=== PATIENT | female | born 2000 | race Caucasian/White ===

== ENCOUNTER 2021-05-27 15:58 | Emergency (ER) | payer MEDICAID, OTHER ==
[~2021-05-27] VITALS: Ht 162.6 cm; Wt 68.0 kg
[2021-05-27] MEDS ORDERED: IOHEXOL 300 MG/ML 100ML BOTTLE IJ ONE (16:35)
[2021-05-27] MEDS ORDERED: LIDOCAINE 1% HCL (LOCAL ANESTH.) INJ 20ML MDV IJ ONE (17:30)
[2021-05-27] MEDS ORDERED: LIDOCAINE 1%HCL (LOCAL ANESTH) 10 ML MDV ONE (17:43)
[2021-05-27] MEDS ORDERED: cefTRIAXone 1GM/50ML D5W 50 ML IV ONE (18:15)
[2021-05-27] MEDS ORDERED: MORPHINE SULFATE 4 MG/ML SYR/VIAL IV ONE (18:15)
[2021-05-27] MEDS ORDERED: ONDANSETRON HCL 4 MG/2 ML VIAL IV ONE (18:15)
[2021-05-27] MEDS ORDERED: PERCOT PO ×2 (19:35→20:28)
[2021-05-27 19:41] VITALS: BP 124/79
[2021-05-27] MEDS ORDERED: TETANUS-DIPTH-ACEL PERTUSSIS 0.5ML SYR Tdap IM ONE (19:45)
== END 2021-05-27 20:11 | disposition home or self-care (01) ==
LOC: ER 15:58
DX: S01.01XA Laceration without foreign body of scalp, initial encounter (principal); Z88.6 Allergy status to analgesic agent; V86.59XA Driver of other special all-terrain or other off-road motor vehicle injured in nontraffic accident, initial encounter; Y93.89 Activity, other specified; Y92.89 Other specified places as the place of occurrence of the external cause; Y99.8 Other external cause status
CPT/HCPCS: 12004; 70450; 70486; 71260; 72125; 73560; 73600; 74177; 90471; 90715; 96365; 96366; 96375; 99285; J0696; J2001; J2270; J2405; Q9967

== ENCOUNTER 2021-06-21 13:26 | Emergency (ER) | payer SELFPAY ==
[~2021-06-21] VITALS: Ht 162.6 cm; Wt 74.8 kg
[~2021-06-21 13:26] MED LIST: PERCOT PO
[2021-06-21 13:59] VITALS: BP 135/79
== END 2021-06-21 14:23 | disposition home or self-care (01) ==
LOC: ER 13:26
DX: S01.01XD Laceration without foreign body of scalp, subsequent encounter (principal); X58.XXXD Exposure to other specified factors, subsequent encounter

== ENCOUNTER 2021-11-09 19:57 | Emergency (ER) | payer MEDICAID ==
[~2021-11-09] VITALS: Ht 160 cm; Wt 78.8 kg
[2021-11-09] MEDS ORDERED: ONDANSETRON HCL 4 MG/2 ML VIAL IV ONE (20:45)
[2021-11-09] MEDS ORDERED: MORPHINE SULFATE 4 MG/ML SYR/VIAL IV ONE (20:45)
[2021-11-09] MEDS ORDERED: ETOMIDATE (2MG/ML) 20ML VIAL IV ONE (21:15)
[2021-11-09] MEDS ORDERED: KETAMINE 50mg/ML 10ml Vial (500mg/10ml) IV ONE (22:15)
[2021-11-09 23:30] VITALS: BP 126/63
== END 2021-11-09 23:53 | disposition home or self-care (01) ==
LOC: ER 19:57
DX: S43.004A Unspecified dislocation of right shoulder joint, initial encounter (principal); Z79.899 Other long term (current) drug therapy; Z88.8 Allergy status to other drugs, medicaments and biological substances; W51.XXXA Accidental striking against or bumped into by another person, initial encounter; Y93.89 Activity, other specified; Y92.89 Other specified places as the place of occurrence of the external cause; Y99.8 Other external cause status
CPT/HCPCS: 23650; 73020; 73030; 96374; 96375; 99152; 99285; J2270; J2405